=== PATIENT | female | born 1970 | race Caucasian/White ===

== ENCOUNTER → 2020-01-31 09:00 | Outpatient (BNVA) | payer OTHER, SELFPAY | PROVIDERS: Family Provider Nurse Practitioner Family; Referring Provider Physician Assistant; Visit Provider Obstetrics & Gynecology | DX: N93.8 Other specified abnormal uterine and vaginal bleeding (principal) | CPT/HCPCS: 83001; 84443; 84703; 85025; 88175 ==

== ENCOUNTER → 2020-02-06 13:06 | Outpatient (BNVA) | payer OTHER, SELFPAY | PROVIDERS: Family Provider Nurse Practitioner Family; Visit Provider Obstetrics & Gynecology | DX: N93.9 Abnormal uterine and vaginal bleeding, unspecified (principal) | CPT/HCPCS: 76830 ==

== ENCOUNTER → 2020-02-12 11:16 | Outpatient (BNVA) | payer OTHER, SELFPAY | PROVIDERS: Family Provider Nurse Practitioner Family; Visit Provider Obstetrics & Gynecology | DX: N92.1 Excessive and frequent menstruation with irregular cycle (principal) | CPT/HCPCS: 88305 ==

== ENCOUNTER 2020-03-11 10:24 | Day surgery (SDC) | payer OTHER, SELFPAY ==
[2020-03-09 13:00] VITALS: BMI 29.9
[2020-03-09 13:28] LABS: Basophils # 0.1 10^3/uL (0.0-0.1); Basophils % 0.5 %; Eosinophils # 0.2 10^3/uL (0.0-0.8); Eosinophils % 1.6 %; Hemoglobin 12.1 g/dL (11.5-15.3); Lymphocytes # 2.2 10^3/uL (0.8-4.8); Lymphocytes % 21.4 %; Mean Corpuscular Hemoglobin 26.1 pg (28.0-34.0); Mean Corpuscular Volume 84.1 fL (81-99); Mean Platelet Volume 10.5 fL (7.4-10.4); Monocytes # 0.5 10^3/uL (0.2-0.9); Monocytes % 4.9 %; Neutrophils # 7.3 10^3/uL (1.8-7.7); Neutrophils % 71.3 %; Nucleated Red Blood Cells % 0 %; Platelet Count 380 10^3/cmm (130-400); Red Blood Count 4.64 10^6/uL (4.1-5.3); Red Cell Distribution Width 14.3 % (12.1-15.1); White Blood Count 10.2 10^3/uL (4.0-10.0)
[2020-03-09 13:43] LABS: Add Urine Microscopic? NO
[2020-03-09 13:44] LABS: Bilirubin Urine Neg (NEGATIVE); Blood Urine Neg (Negative); Glucose Urine UA Norm (Normal); Ketones Urine Negative (Negative); Leukocyte Esterase Urine Negative (Negative); Nitrate Urine Negative (Negative); Protein Urine Neg (Negative); Urine Appearance Clear (CLEAR); Urine Color Yellow (Yellow); Urobilinogen Urine Norm (Negative); pH Urine 5 (5-7)
--- NOTE | 2020-03-09 13:44 | P.ANESASSM_ITS ---
Pre-Anesthetic Assessment Pre-Anesthetic Assessment: Height/Weight: Height 1.57 m Weight 74.389 kg Preop Diagnosis: Abnormal uterine bleeding, endometrial polyp Proposed Procedure: Operation Date: 03/11/20 10:40 Proposed Procedures p Hysteroscopic polypectomy w/ Myosure 10799/[id number]/39023/N93.9/N84.0(Not Applicable) - Naif Conde MD s Dilation And Curettage (D&C)(Not Applicable) - Naif Conde MD Social: Social History: No alcohol and No tobacco Exam: Pre-Anes Outpt Exam: alert, oriented x 3, clear to auscultation bilaterally and regular rate & rhythm Airway: Submandibular: WNL Cervical ROM: WNL MP: 2 Dentition: Other (teeth good) History/ROS: No significant history except as noted Pulmonary: Pulmonary: None reported CV/HEM: CV/HEM: None reported Hepatic: Hepatic: None reported GI: GI: GERD (occ) Metabolic: Metabolic: None reported Musc/skel: Musc/skel: OA/DJD Neuropsych: Neuropsych: None reported Anesthetic Plan: ASA status: 2 Anesthesia: Anesthesia Evaluation and General Risk of > 500 ml blood loss (7ml/kg in children): No PFSH Anesthesia PFSH: Family History Father Diabetes Mother Hypertension CAD (coronary artery disease) Lung disease Hyperlipidemia Social History (Updated 03/09/20 @ 08:16 by Gaye Oviedo RN) Smoking and tobacco status: never smoked Alcohol intake: never Substance/Drug Use: never Data Anesthesia CBC & Chem 7: 03/09/20 13:11 Other Labs: Laboratory Results - last 48 hr 03/09/20 13:11 WBC 10.2 H RBC 4.64 Hgb 12.1 Hct 39.0 MCV 84.1 MCH 26.1 L MCHC 31.0 RDW 14.3 Plt Count 380 MPV 10.5 H Neut % (Auto) 71.3 Lymph % (Auto) 21.4 [place] % (Auto) 4.9 Eos % (Auto) 1.6 Baso % (Auto) 0.5 Neut # (Auto) 7.3 Lymph # (Auto) 2.2 [place] # (Auto) 0.5 Eos # (Auto) 0.2 Baso # (Auto) 0.1 Nucleated RBC % (auto) 0 Nucleated RBCs # 0.0 Cardiac Studies: No Data to Display
[2020-03-09 13:45] LABS: OR HCG Qualitative Urine Negative (Negative)
[2020-03-09 13:46] LABS: Alanine Aminotransferase 28 U/L (0-33); Alkaline Phosphatase 64 IU/L (35-105); Anion Gap 15.9 (5-19); Aspartate Amino Transferase 22 U/L (0-32); Blood Urea Nitrogen 9 mg/dL (6-20); Calcium 9.1 mg/dL (8.5-10.5); Carbon Dioxide 24 mmol/L (22-29); Chloride 101 mmol/L (98-107); Globulin 3.3 g/dL (1.3-4.6); Glomerular Filtration Rate 88.2 mL/min (90-130); Glucose 110 mg/dL (65-115); Osmolality Calculated 281 mOsm/kg (285-295); Potassium 3.9 mmol/L (3.5-5.1); Sodium 137 mmol/L (136-145); Total Bilirubin 0.2 mg/dL (0.15-1.2); Total Protein 7.3 g/dL (6.6-8.7)
[2020-03-11] VITALS (7 sets, daily range): BP systolic 134–143; BP diastolic 66–99; PULSE 79–102; RESP 14–18; TEMP 36.1–36.8; O2SAT 97–100
[2020-03-11] MEDS: scopolamine 1.5 Patch 1 PATCH TRANSDERMA (10:53)
[2020-03-11] MEDS: sodium chloride 0.9% 1,000 ML 30 ML IV (11:02)
--- NOTE | 2020-03-11 11:39 | W.PM.OPSUD ---
Surgery/Procedure H&P Update DATE OF PROCEDURE: March 11, 2020 DATE H&P PERFORMED: 03/09/20 H&P UPDATE INFORMATION: I have reviewed H&P completed within last 30 days, I have examined patient prior to procedure and No changes to prior documentation PREOP DIAGNOSIS: Abnormal uterine bleeding, endometrial polyp PLANNED PROCEDURE: Operation Date: 03/11/20 12:00 Proposed Procedures p Hysteroscopic polypectomy w/ Myosure [id number]/[id number]/86371/N93.9/N84.0(Not Applicable) - Naif Conde MD s Dilation And Curettage (D&C)(Not Applicable) - Naif Conde MD
--- NOTE | 2020-03-11 13:59 | P.OP_ITS ---
Operative Report Date of procedure: March 11, 2020 Pre-op Diagnosis: Abnormal uterine bleeding, endometrial polyp Procedure Done: Hysteroscopic polypectomy Specimens removed/disposition: endometrial polyp and endometrial curettings Surgeon: Naif Conde Anesthesia: General Estimated blood loss (mL): 5 IV fluids (mL): 400 Condition: stable Disposition: PACU Brief History: 49-year-old female with abnormal uterine bleeding Procedure: After informed consent, the risks included but were not limited to bleeding, infection, injury to internal organs. The patient was counseled on a possible laparotomy and on the potential need for hysterectomy. The patient expressed understanding of the risks involved, all questions were answered, and the patient consented to the procedure. The patient was taken to the operating room where general anesthesia was administered. She was placed in the dorsal lithotomy position and prepped and draped in sterile fashion. A time out procedure was performed. The patient was examined under anesthesia and found to have a normal uterus with normal adnexa. A sterile weight speculum was placed in the vagina. The uterus was then gently sounded to 11 cm, and the cervix was dilated. The 0 degrees MyoSure hysteroscope was advanced gently to the uterine fundus while visualizing the monitor. Survey of the uterine cavity showed: Endometrial polyp left lateral wall, the fundus shows With atrophic endometrium; left ostium was visualized, and lateral wall with Atrophic endometrium; right ostium visualized, and lateral wall with Atrophic endometrium; anterior and posterior navarro are with Atrophic endometrium; endocervical canal is Normal. The MyoSure device was advanced and the direct visualization the Polyp was morcellated without complic ation. At the end of morcellation the fluid deficit was 60 mL and was estimated at approximately 50 mL were on the floor. There was minimal bleeding noted and the tenaculum removed with goad hemostasis noted. The patient tolerated the procedure well. The patient was taken to the recovery area in stable condition.
== END 2020-03-11 14:59 | disposition home or self-care (01) ==
PROVIDERS: PCP Physician Assistant; Visit Provider Obstetrics & Gynecology
PROC: 0UDB8ZZ Extraction of Endometrium, Via Natural or Artificial Opening Endoscopic (ICD-10-PCS; CPT 58558; principal; 2020-03-11 12:00)
PROC: (CPT 58120; 2020-03-11 12:00)
DX: N93.9 Abnormal uterine and vaginal bleeding, unspecified (principal); N84.0 Polyp of corpus uteri; M19.90 Unspecified osteoarthritis, unspecified site; K21.9 Gastro-esophageal reflux disease without esophagitis; Z82.49 Family history of ischemic heart disease and other diseases of the circulatory system; Z83.3 Family history of diabetes mellitus
CPT/HCPCS: 58558; 12345; 36415; 80053; 81003; 84703; 85025; 86850; 86900; 88305; 96365; J0690; J2001; J2704; J3010; J7030

== ENCOUNTER → 2020-08-07 10:39 | Outpatient (BNVA) | payer OTHER, SELFPAY | PROVIDERS: PCP Physician Assistant; Visit Provider Obstetrics & Gynecology | DX: B37.3 Candidiasis of vulva and vagina (principal); N91.1 Secondary amenorrhea | CPT/HCPCS: 83001; 83036 ==

== ENCOUNTER → 2021-03-01 09:07 | Outpatient (BNVA) | payer OTHER, SELFPAY | PROVIDERS: PCP Physician Assistant; Visit Provider Obstetrics & Gynecology | DX: N93.9 Abnormal uterine and vaginal bleeding, unspecified (principal); N95.0 Postmenopausal bleeding; Z20.822 Contact with and (suspected) exposure to COVID-19 | CPT/HCPCS: 87635 ==

== ENCOUNTER 2021-03-03 14:25 | Observation (INO) | payer OTHER, SELFPAY ==
[2021-03-01 09:38] VITALS: BMI 29.2
--- NOTE | 2021-03-01 10:03 | P.ANESASSM_ITS ---
Pre-Anesthetic Assessment Pre-Anesthetic Assessment: Height/Weight: Height 1.6 m Weight 74.843 kg Preop Diagnosis: Postmenopausal bleeding Proposed Procedure: Operation Date: 03/03/21 10:35 Proposed Procedures p Laparoscopic Assist Vaginal Hysterectomy 53204 n93.9(Not Applicable) - Naif Conde MD Familial anesthetic complications: None Social: Social History: No alcohol and No tobacco Exam: Pre-Anes Outpt Exam: alert, oriented x 3, clear to auscultation bilaterally and regular rate & rhythm Airway: Cervical ROM: WNL MP: 2 Dentition: Full Pulmonary: Pulmonary: Asthma (occassional inhaler use) Anesthetic Plan: ASA status: 2 Anesthesia: General Risk of > 500 ml blood loss (7ml/kg in children): No PFSH Anesthesia PFSH: Medical History Aftercare following surgery of the genitourinary system Menometrorrhagia Surgical History H/O breast surgery right breast- 1998 S/P section x3 S/P right oophorectomy 2016 S/P tubal ligation 1998 done with tubal Status post hysteroscopic polypectomy 03/11/2020- performed by Dr. Conde at [facility] Family History Father Diabetes Mother Hypertension CAD (coronary artery disease) Lung disease Hyperlipidemia Social History (Updated 03/01/21 @ 08:06 by Gaye Oviedo RN) Smoking and tobacco status: never smoked Alcohol intake: never Substance/Drug Use: never Female Reproductive History: Date of last menstrual period: 03/01/21 Data Anesthesia Cardiac Studies: No Data to Display
[2021-03-01 10:13] LABS: Basophils # 0.1 10^3/uL (0.0-0.1); Basophils % 0.6 %; Eosinophils # 0.1 10^3/uL (0.0-0.8); Hematocrit 40.3 % (37.0-47.0); Hemoglobin 12.8 g/dL (11.5-15.3); Lymphocytes # 1.9 10^3/uL (0.8-4.8); Lymphocytes % 15.9 %; Mean Corpuscular HGB Conc 31.8 g/dL (30.0-36.0); Mean Corpuscular Hemoglobin 27.3 pg (28.0-34.0); Mean Corpuscular Volume 85.9 fL (81-99); Mean Platelet Volume 10.1 fL (7.4-10.4); Monocytes # 0.5 10^3/uL (0.2-0.9); Monocytes % 4.6 %; Neutrophils # 9.01 10^3/uL (1.8-7.7); Neutrophils % 77.5 %; Nucleated Red Blood Cells % 0 %; Platelet Count 440 10^3/cmm (130-400); Red Blood Count 4.69 10^6/uL (4.1-5.3); Red Cell Distribution Width 13.2 % (12.1-15.1); White Blood Count 11.6 10^3/uL (4.0-10.0)
[2021-03-01 10:25] LABS: Add Urine Microscopic? YES; Bilirubin Urine Neg (Negative); Blood Urine 3+ (Negative); Glucose Urine UA Norm (Normal); Ketones Urine Negative (Negative); Leukocyte Esterase Urine Negative (Negative); Nitrate Urine Negative (Negative); Protein Urine Neg (Negative); Specific Gravity, Urine 1.015 (1.005-1.030); Urine Appearance Clear (CLEAR); Urine Color Straw (Yellow); Urobilinogen Urine Norm (Negative); pH Urine 5 (5-7)
[2021-03-01 10:26] LABS: Add Urine Culture? No; Bacteria Urine 1+ /hpf; OR HCG Qualitative Urine Negative (Negative); RBC Urine 0-4 /hpf (0-2); Squamous Epithelial Cell Urine 0-4 /hpf (0-5); WBC Urine 0-4 /hpf (0-5)
[2021-03-01 10:38] LABS: Alanine Aminotransferase 10 U/L (0-33); Albumin Level 4.2 g/dL (3.5-5.2); Alkaline Phosphatase 74 IU/L (35-105); Anion Gap 15.9 (5-19); Aspartate Amino Transferase 12 U/L (0-32); Blood Urea Nitrogen 8 mg/dL (6-20); Calcium 8.3 mg/dL (8.5-10.5); Carbon Dioxide 23 mmol/L (22-29); Chloride 102 mmol/L (98-107); Globulin 3.2 g/dL (1.3-4.6); Glucose 90 mg/dL (65-115); Osmolality Calculated 282 mOsm/kg (285-295); Potassium 3.9 mmol/L (3.5-5.1); Sodium 137 mmol/L (136-145); Total Bilirubin 0.2 mg/dL (0.15-1.2); Total Protein 7.4 g/dL (6.6-8.7)
[2021-03-03] VITALS (12 sets, daily range): BP systolic 130–162; BP diastolic 79–94; PULSE 71–99; RESP 12–18; TEMP 36.3–37.1; O2SAT 94–98
[2021-03-03] MEDS: scopolamine 1.5 Patch 1 PATCH TRANSDERMA (10:07)
[2021-03-03] MEDS: sodium chloride 0.9% 1,000 ML 30 ML IV (10:07)
--- NOTE | 2021-03-03 10:30 | P.ANESUD_ITS ---
Pre-Anesthetic Update Pre-Anesthetic Assessment: Date of Surgery/Procedure: 03/03/21 Preop Genevieve gnosis: Postmenopausal bleeding Proposed Procedure: Operation Date: 03/03/21 11:10 Proposed Procedures p Laparoscopic Assist Vaginal Hysterectomy 05036 n93.9(Not Applicable) - Naif Conde MD Any changes to Pre-Anesthetic Assessment?: No Last Intake: Intake Last Liquid Date 03/02/21 Last Liquid Time 19:00 Last Solid Date 03/02/21 Last Solid Time 17:00 Labs Last 48hrs: Laboratory Results - last 48 hr 03/01/21 03/01/21 09:55 09:55 Sodium 137 Potassium 3.9 Chloride 102 Carbon Dioxide 23 Anion Gap 15.9 BUN 8 Creatinine 0.6 GFR Calculation 105.0 Glucose 90 Calculated Osmolal ity 282 L Calcium 8.3 L Total Bilirubin 0.2 AST 12 ALT 10 Alkaline Phosphata se 74 Total Protein 7.4 Albumin 4.2 Globulin 3.2 Blood Type A Positive Rho(D) Type Positive / 4+ Antibody Screen Negative Vitals: Temperature 97.3 F L 03/03/21 10:07 Temperature Source Temporal Artery S can 03/03/21 10:07 Pulse Rate 87 03/03/21 10:07 Respiratory Rate 18 03/03/21 10:07 Blood Pressure 130/82 03/03/21 10:07 Blood Pressure Kelsea n 98 03/03/21 10:07 Pulse Oximetry 98 03/03/21 10:07 Oxygen Delivery Me thod 03/03/21 10:07 Exam: Pre-Anes Outpt Exam: alert, oriented x 3, clear to auscultation bilaterally and regular rate & rhythm Cardiac Studies: No Data to Display
[2021-03-03 10:40] LABS: OR HCG Qualitative Urine Negative (Negative)
--- NOTE | 2021-03-03 10:41 | W.PM.OPSUD ---
Surgery/Procedure H&P Update DATE OF PROCEDURE: March 03, 2021 DATE H&P PERFORMED: 03/01/21 H&P UPDATE INFORMATION: I have reviewed H&P completed within last 30 days, I have examined patient prior to procedure and No changes to prior documentation PREOP DIAGNOSIS: Postmenopausal bleeding PLANNED PROCEDURE: Operation Date: 03/03/21 11:10 Proposed Procedures p Laparoscopic Assist Vaginal Hysterectomy 83334 n93.9(Not Applicable) - Naif Conde MD
[2021-03-03] MEDS: ceFOXitin 2,000 MG in sodium chloride 0.9% (plus) 50 ML 100 MG IV (10:55)
--- NOTE | 2021-03-03 13:15 | P.OP_ITS ---
Operative Report Date of procedure: March 03, 2021 Pre-op Diagnosis: Postmenopausal bleeding Post-op diagnosis: other (Uterine fibroids) Post-op Findings: Enlarged irregular uterus with adhesions to the left adnexa Procedure Done: Laparoscopic assisted vaginal hysterectomy Specimens removed/disposition: Uterus and left ovary Pathology: Uterus and left ovary Surgeon: Naif Conde MD Anesthesia: General Estimated blood loss (mL): 300 IV fluids (mL): 900 Urine output (mL): 400 Complications: Enlarged uterus had to be morcellated Condition: stable Disposition: PACU Brief History: 50-year-old female with abnormal uterine bleeding then postmenopausal bleeding unresponsive to medical management with uterine leiomyoma Procedure: After discussing informed consent again, the patient was taken to the operating room where general anesthesia was administered. She was placed in the dorsal lithotomy position in low stirrups and prepped and draped in sterile fa shion. Pre-Procedure Time-Out verifying the correct patient identity, correct procedure verified with consent, correct site and side, correct patient position, availability of correct implants and any special equipment or requirements was performed and acknowledge by the OR team. After the initial preparation, the procedure commenced at the vagina. With a single side speculum was place to visualize the cervix; the anterior and posterior lips of the cervix were separately grasped and clamped with ximena tooth tenaculum. The cervix was then dilated to a #6 hegar dilator and a uterine manipulator within the uterine cavity for manipulation purposes being careful not to puncture the uterus. A Grubbs catheter was placed in the bladder. Attention was then turned to the abdomen. The umbilical region was infiltrated with 1% lidocaine with epinephrine. Following infiltration with lidocaine, an intraumbilical incision was made and the Verres needle was gently advanced taking care to feel for the typical sensation of penetrating the peritoneum. With CO2 infiltration, an opening pressure of 3 mmHg was noted, and following this, a pneumoperitoneum of 15 mmHg was created. A 5 mm Optiview trocar was then passed through the same incision under direct visualization. Trocar was removed and the laparoscope was then inserted through the trocar sleeve. Visualization of the peritoneal cavity was then obtained and a brief inspection did not reveal any signs of complications from entry. Under direct observation, a second incision was made 3 cm above the symphysis pubis, and a 5 mm trocar and sleeve were admitted into the abdomen under direct, laparoscopic visualization. A 5mm flank ports were then placed laterally on left sides taking care to respect anatomical landmarks and vessels without complication. Once the placement of the ports was complete, the actual laparoscopic procedure began. Beginning on the right side and distally along the length of the fallopian tube, the mesosalpinx was exposed by lifting the left tube/ovary up towards the anterior abdominal wall. The mesosalpinx was then sequentially, clamped, ligated, and cut using the Enseal working alongside the length of the tube and towards the cornua. Attention was then turned to the other side. The same process was repeated on the right, sequentially clamping, sealing/ligating, and cutting the mesosalpinx being sure to not injure the adjacent ovarian tissue or other surrounding structures. The round ligament was then clamped, sealed/ligated and cut with the Enseal device. Following this, the anterior leaf of the broad ligament was then taken down on the left side, dissecting down towards the peritoneal reflection at the base of the bladder and adjacent to the cervix. The same process was then repeated on the left side such that both sides met and the anterior leaflet had been appropriately skeletonized. To ensure excellent hemostasis prior to further manipulation, the pedicles of the cardinal ligament was then clamped sealed/ligated and divided on each side using the Enseal device. Attention was then turned to the vaginal aspect of the surgery. The Grubbs catheter was clamped. A Bookwalter vaginal retractor was placed in the vagina and the uterine manipulator was removed. The tenaculum was repositioned anteriorly and posteriorly. A circumferential incision was made at the cervical vaginal reflection using cautery. This was undermined first anteriorly and a colpotomy made without difficulty. This was then repeated posteriorly and a similar colpotomy made. Eloy retractors were then placed into each of these incisions. Beginning first on the patient's left, the uterosacral and cardinal ligament was clamped, sealed, divided, and suture ligated. Two bites were required to reach the previous dissection margin of the left side. The same process was then repeated on the patient's right hand side, at which point, the specimen was completely freed. Once the sutures had been placed and the pedicles secured, the uterus had to be morcellated due to its irregular size due to the fibroids then the uterus along with the left tube and ovariy was removed transvaginally without difficulty. All pedicles were inspected and hemostasis was confirmed. The vaginal vault was then oversewn with a running locking Vicryl suture, securing first the posterior edge of the cuff followed by the anterior edge. Good hemostasis was obtained. Two [id number] sutures were then placed across the vaginal vault to close it. Once these had been tied off, all sutures were trimmed; a wet sponge was placed in the vagina to pack it off while attention was again turned back to the abdomen. All instruments were removed from the vagina at this time. The patient was given indigo carmine IV. Using the laparoscope the abdomen was carefully inspected to ensure complete hemostasis. srgicell was used on the pedicles to ensure they were hemostatic and secure. Once the entire abdomen was inspected, the instruments were carefully removed. The ports were then removed under direct visualization being sure to note hemostasis of the port sites on removal. The incisions were then closed with interrupted Monocryl sutures and Dermabond. The patient tolerated the procedure well, anesthesia reversed, and the patient was taken to the recovery room in stable condition. All sponges, instruments, and sharps were counted and correct x 3. Blue urine was noted in the Grubbs bag.
--- NOTE | 2021-03-03 13:24 | P.PCN_ITS ---
PACU note PACU note: VSS, Good respiratory effort, report to OUTSIDE CUTTER HAND Post-Anesthesia Exam: awake
--- NOTE | 2021-03-03 13:24 | PM.PACU ---
PACU note PACU note: VSS, Good respiratory effort, report to NURSING INSTRUCTOR Post-Anesthesia Exam: awake
[2021-03-03] MEDS: ondansetron 2 mg/ML SDV 2 mL 4 MG IVP (15:09)
[2021-03-03] MEDS: dextrose 5%-lactated ringers 1,000 ML 125 ML IV ×2 (15:09→23:42)
--- NOTE | 2021-03-03 15:36 | ANE.PACU2 ---
Inpatient post-anesthesia follow up: Airway intact: Yes Vital signs: Temperature 97.8 F Pulse Rate 88 Respiratory Rate 17 Blood Pressure 144/79 Pulse Oximetry 97 Oxygen Delivery Me thod Room Air Oxygen Flow Rate 8 Fraction of Inspir ed Oxygen Hydration adequate: Yes Nausea and vomiting: No Pain level: 3 Mental status: Baseline
[2021-03-03] MEDS: promethazine 25 mg/mL SDV 1 mL IM (15:43)
[2021-03-03] MEDS: HYDROcodone-acetaminophen 5-325 mg Tablet PO ×2 (15:43→23:40)
[2021-03-03] MEDS: ketorolac 30 mg/mL INJ IVP (17:51)
[2021-03-03] MEDS: docusate sodium 100 mg Capsule PO (17:51)
[2021-03-03] MEDS: acetaminophen 325 mg Tablet 650 MG PO (19:54)
[2021-03-04] VITALS: BP 131/77; PULSE 90; RESP 18; TEMP 37.3; O2SAT 96
[2021-03-04] MEDS: ketorolac 30 mg/mL INJ IVP ×2 (01:50→07:58)
[2021-03-04 03:53] VITALS: BP 138/84; PULSE 82; RESP 18; TEMP 37.1; O2SAT 97
[2021-03-04 07:31] VITALS: BP 151/89; PULSE 82; RESP 16; TEMP 37.3; O2SAT 96
[2021-03-04] MEDS: dextrose 5%-lactated ringers 1,000 ML 125 ML IV (07:58)
[2021-03-04] MEDS: docusate sodium 100 mg Capsule PO (08:07)
--- NOTE | 2021-03-04 08:38 | PM.OBGYDC ---
Discharge Providers CONSUMER RECRUITER Date of Admission: 03/03/21 14:25 Date of Discharge: 03/04/21 Attending Provider at Admission: Naif Conde MD Attending Provider at Discharge: Naif Conde MD Primary Care Provider: Susan Gutierrez Diagnoses at Discharge Discharge Diagnosis (1) Postmenopausal bleeding: Status: Acute (2) Menopause: Status: Acute (3) Surgical menopause: Status: Acute Reason for Visit Reason for Visit: lap assisted vaginal hysterectomy Hospital Course Hospital Course Mrs. Sanchez 50-year-old female with a history of abnormal uterine bleeding and postmenopausal bleeding unresponsive to medical management, uterine fibroids and status post right oophorectomy. Admitted for planned laparoscopic assisted vaginal hysterectomy with left oophorectomy, procedures were performed without complications. Overnight observation uneventful. Tolerating diet well. Passing flatus. Urine output adequate. Ambulating without difficulty. She is afebrile and hemodynamically stable on postoperative day 1. Physical Exam Narrative: EXAM NARRATIVE: GA: Alert and oriented ?3. HEENT: WNL. Heart: Regular rate and rhythm. Lungs: Clear to auscultation bilaterally. Abdomen: Bowel sounds present, nontender, minimal tenderness, incision clean and dry, no redness, pain or edema. BLOOD DONOR RECRUITER SUPERVISOR: No bleeding. Extremities: No edema, no cyanosis, no calves pain. Urinary Catheter Management^: Grubbs: Cath Placed During This Visit: yes, but has since been removed by the nurse Reason for Continuing Indwelling Catheter: Not indwelling catheter Urinary Catheter Date of Insertion: 03/03/21 Urinary Catheter Time of Insertion: 10:36 Date Urinary Catheter Removed: 03/04/21 Time Urinary Catheter Discontinued: 06:45 Discharge Data Data Completed and Pending: Pending at discharge Category Date Time Status ES surgery / GI i mages Routine Exams 03/03/21 10:35 Taken Hemagram Timed Lab 03/04/21 05:00 Uncollected Pathology: Surgic al [PTH] Routine Pth 03/03/21 13:17 Received Labs from last 24 hours 03/03/21 09:51 Urine HCG, Qual Negative Vitals: Last Vital Signs Temp 99.1 F 03/04/21 07:31 Pulse 82 03/04/21 07:31 Resp 16 03/04/21 07:31 BP 151/89 03/04/21 07:31 Pulse Ox 96 03/04/21 07:31 Discharge Plan Discharge Patient Disposition: Home Condition: Stable Prescriptions: New ibuprofen 800 mg tablet 800 mg PO TID PRN (Reason: pain) Qty: 60 RF: 0 Iron (ferrous sulfate) 325 mg (65 mg iron) tablet 325 mg PO BID Qty: 60 RF: 0 Colace 100 mg capsule 100 mg PO BID Qty: 30 RF: 0 acetaminophen 325 mg capsule 325 mg PO Q4H PRN (Reason: fever or pain) Qty: 60 RF: 0 estradiol 0.5 mg tablet 0.5 mg PO DAILY 30 Days Qty: 30 RF: 0 Continued acidophilus-pectin, citrus [Acidophilus Probiotic] 100 million cell-10 mg capsule 1 cap PO DAILY PRN (Reason: Constipation) RF: 0 acetaminophen [Tylenol] 325 mg tablet 325 mg PO QID PRN (Reason: Pain) RF: 0 ascorbate calcium (vitamin C) 500 mg tablet 1,000 mg PO DAILY PRN (Reason: Flu Symptoms) RF: 0 Nortrel 0.5/35 (28) 0.5-35 mg-mcg tablet 1 tab PO DAILY Qty: 84 RF: 1 albuterol 90 mcg/actuation Aerosol 90 mcg INHALATION BID PRN (Reason: Shortness Of Breath) RF: 0 Discharge Orders: Discharge Order (Routine); Ordered 03/04/21 Ordered By: Naif Conde Other Ambulatory Orders: Estradiol (Routine) Timeframe: 1 Month Facility: [facility] - Location: Lab - Main Lab Ordered By: Naif Conde Referrals: Naif Conde MD [Physician] - 03/16/21 7:45 am () Discharge Diet: Usual diet Discharge Activity: Increase activity as tolerated Patient Instructions: Iron Supplements (By mouth), Ibuprofen (By mouth), Estradiol (By mouth), Laxative, Stool Softeners (By mouth), Vaginal Hysterectomy (DC), Laparoscopically Assisted Vaginal Hysterectomy (DC) Activity Restrictions/Additional Instructions: 1. Please call [facility] on next working day to make your post-operative appointment in 2 weeks. 2. Please stay home until you come back to the clinic on first post-operative check up. 3. Please follow instructions on your medications CAREFULLY. 4. If you have abdominal incision, do not cover it unless dressing is necessary because of drainage. OK to shower, but avoid bath. Leave steri-strips or adhesive until they fall off. If they are still on one week after surgery, you may remove them. 5. If you had vaginal surgery or vaginal repair, Dr. Conde may instruct you to take SITZ bath. 6. Yellow, blood tinged odorous vaginal discharge is usually normal after hysterectomy or vaginal surgeries. 7. No sexual intercourse, tampons, or douches until you are completely released from the post-operative care for 6 weeks. 8. Avoid constipation by eating right and maybe using some Metamucil or Milk of Magnesia. 9. All prescription refills are given during the working hours. Please do no wait till it runs out. Call the clinic at [phone] before your medication runs out. The clinic will get in touch with your doctor to prescribe medications if necessary. 10. Please remain within 40 mile radius from our hospital because emergencies do happen now and then during the post-operative period. 11. If you have stairs at home, take one step at a time slowly and minimize the number of trips. It helps to stay in one floor for the next few days. No lifting except what you can lift by one hand until you are released from the post-operative care. 12. Driving is discouraged until you are well healed. It may be 3-4 weeks before you feel strong enough to drive. You should be able to turn and look through the rear window without pain and you should be able to push the brake pedal very hard without pain before you drive. No fast rules, but SAFETY should be your primary concern. DO NOT drive if you are on sedating medications such as narcotics. 13. Call the clinic (during working hours) to make urgent appointment or go to the Emergency room, if any of the following occurs: i. Vaginal bleeding becomes heavy, more than a period. ii. Incision becomes red and sore, or drains pus. iii. Your temperature is over 100.4 or you have chill. iv. IV site becomes red and swollen (a little ``knot?? is usually OK) v. Persistent nausea and vomiting vi. Persistent constipation or diarrhea vii. Rash or allergic reaction to medications. Discharge Attestations CONSUMER RECRUITER Time Spent in Discharge Care*: greater than 30 min Coding Level of Care Code Acute Message Broker Developer for [facility] Fwd Diagnoses Postmenopausal bleeding N95.0 Menopause Z78.0 Surgical menopause E89.40
[2021-03-04 09:22] LABS: Hematocrit 34.4 % (37.0-47.0); Hemoglobin 10.9 g/dL (11.5-15.3); Mean Corpuscular HGB Conc 31.7 g/dL (30.0-36.0); Mean Corpuscular Volume 85.4 fL (81-99); Mean Platelet Volume 9.8 fL (7.4-10.4); Platelet Count 398 10^3/cmm (130-400); Red Blood Count 4.03 10^6/uL (4.1-5.3); Red Cell Distribution Width 13.2 % (12.1-15.1); White Blood Count 17.6 10^3/uL (4.0-10.0)
[2021-03-04 10:31] VITALS: BP 151/89; PULSE 82; RESP 16; TEMP 37.3; O2SAT 96
== END 2021-03-04 10:32 | disposition home or self-care (01) ==
LOC: MEDSURG 03-04 06:36
PROVIDERS: Admitting Provider Obstetrics & Gynecology; PCP Physician Assistant; Visit Provider Obstetrics & Gynecology
PROC: 0UT9FZZ Resection of Uterus, Via Natural or Artificial Opening With Percutaneous Endoscopic Assistance (ICD-10-PCS; CPT 58552; principal; 2021-03-03 11:00)
PROC: (CPT 58661; 2021-03-03 11:00)
DX: N95.0 Postmenopausal bleeding (principal); D25.9 Leiomyoma of uterus, unspecified; E89.40 Asymptomatic postprocedural ovarian failure; Z78.0 Asymptomatic menopausal state
CPT/HCPCS: 58552; 36415; 80053; 81001; 81025; 84703; 85025; 85027; 86850; 86900; 88307; 96365; 96372; G0378; J0694; J1100; J1885; J2405; J2550; J2704; J2710; J3010; J3490; J7030

== ENCOUNTER 2021-03-31 10:28 | Outpatient (CLI) | payer OTHER, SELFPAY ==
[2021-03-31 11:20] LABS: Estradiol 32.9 pg/mL
== END 2021-03-31 10:29 | disposition home or self-care (01) ==
PROVIDERS: Obstetrics & Gynecology; PCP Physician Assistant; Visit Provider Pharmacist
DX: E89.40 Asymptomatic postprocedural ovarian failure (principal)
CPT/HCPCS: 36415; 82670